=== PATIENT | female | born 1940 | race Caucasian/White ===

== ENCOUNTER → 2017-10-29 | Outpatient (CLI) | payer MEDICARE, BC ==
[~2017-10-29] MED LIST: ALBU90OI INH; ASCO500 PO; BECL25NI; CALCAVITDA PO; DIAZIDE PO; FAMO20 PO; LOSHYD PO; MULVITMINF PO; OXYACE5T PO; PANT20 PO; PANT40 PO; RXOXYACE PO; TERI750 SQ; TRIHYD253A PO
== END | disposition home or self-care (01) ==
LOC: LAB SHORT 07:41 → PLD 07:41
DX: C44.329 Squamous cell carcinoma of skin of other parts of face (principal)
CPT/HCPCS: 88305

== ENCOUNTER → 2020-08-06 | Outpatient (CLI) | payer MEDICARE, BC ==
[2020-08-08 16:03] LABS: CORONAVIRUS (COVID19) CSH-NRL Negative (Negative)
== END | disposition home or self-care (01) ==
LOC: LAB SHORT 11:50 → LAB EV 11:50
PROVIDERS: Family Medicine
DX: J06.9 Acute upper respiratory infection, unspecified (principal); Z20.828 Contact with and (suspected) exposure to other viral communicable diseases
CPT/HCPCS: U0003

== ENCOUNTER → 2022-11-06 | Outpatient (CLI) | payer MEDICARE, BC | LOC: LAB 10:36 → LAB SHORT 10:36 | DX: C44.102 Unspecified malignant neoplasm of skin of right eyelid, including canthus (principal) | CPT/HCPCS: 88305 ==

== ENCOUNTER 2024-02-02 11:55 | Day surgery (SDC) | payer MEDICARE, BC ==
[~2024-02-02] VITALS: Ht 157.5 cm; Wt 56.9 kg
[~2024-02-02 11:55] MED LIST changes: +C COMPLEX1000 M1 PO; +DYAZIDE 37.5-21 EACH PO; +FLUT.05NI; +IMPOYZ100 GM; +Lactated Ringer's 1,000 ML IV ONE; +Lidocaine HCl 2% 10 ML SDA ONE; +MECL25 PO; +MONT10T PO; +PANTOPRAZOLE SO40 M2 PO
[2024-02-02] MEDS ORDERED: NS 50 ML IV ONE (12:26)
[2024-02-02] MEDS ORDERED: CeFAZolin Sodium 2,000 MG VIAL ONE (12:26)
[2024-02-02] MEDS ORDERED: Lidocaine 1%-Epineph 1:100000 20 ML MDV ONE (12:37)
[2024-02-02] MEDS ORDERED: propofoL 0 ML IV ONE (12:38)
[2024-02-02] MEDS ORDERED: Ondansetron HCl 2 MG / ML 2ML Vial ONE (12:38)
[2024-02-02] MEDS ORDERED: Dexamethasone Sod Phos 10 MG/ML 1ML VIAL ONE ×2 (12:38→14:03)
[2024-02-02] MEDS ORDERED: Ketorolac Tromethamine 30mg Vial ONE (12:38)
[2024-02-02] MEDS ORDERED: Midazolam HCl 1MG / ML 2ML Vial ONE ×2 (12:39→14:03)
[2024-02-02] MEDS ORDERED: ALBU90OI (12:40)
[2024-02-02] MEDS ORDERED: Lactated Ringer's 1,000 ML IV ONE ×2 (12:59)
[2024-02-02] MEDS ORDERED: Lidocaine HCl 2% 10 ML SDA ONE (13:35)
[2024-02-02] MEDS ORDERED: EPINEPhrine HCl 1 MG/ML 1ML Amp ONE (14:03)
[2024-02-02] MEDS ORDERED: propofoL 20 ML IV ONE (14:27)
--- NOTE | 2024-02-02 14:27 | NUR ---
02/02/24 1427 Ana Laura Villatoro TIME OUT PERFORMED AT BEDSIDE AT [address] KAY AND SHITAL MAST PRESENT. PREOP AXILLARY NERVE BLOCK PERFORMED AT BEDSIDE. PATIENT ON 4L 02 VIA NC. SPO2 AND BP MONITORED THROUGHOUT PROCEDURE. PATIENT TOLERATED PROCEDURE WELL. NERVE BLOCK STARTED AT 1415 AND ENDED AT 1420.
--- NOTE | 2024-02-02 15:27 | NUR ---
02/02/24 1527 Fabio Atkins LEFT AXILLARY BLOCK COMPLETE IN PRE OP BY DR KAY.
[2024-02-02 15:31] VITALS: BP 108/60
== END 2024-02-02 16:27 | disposition home or self-care (01) ==
LOC: ORSCSDS 11:55
PROVIDERS: Orthopaedic Surgery
PROC: 0L860ZZ Division of Left Lower Arm and Wrist Tendon, Open Approach (ICD-10-PCS; principal; 2024-02-02 13:15)
PROC: 0PSJ04Z Reposition Left Radius with Internal Fixation Device, Open Approach (ICD-10-PCS; principal; 2024-02-02 13:15)
DX: S52.572A Other intraarticular fracture of lower end of left radius, initial encounter for closed fracture (principal); S52.615A Nondisplaced fracture of left ulna styloid process, initial encounter for closed fracture; W18.30XA Fall on same level, unspecified, initial encounter; I10 Essential (primary) hypertension; Z79.899 Other long term (current) drug therapy
CPT/HCPCS: C1713; J0171; J0690; J1100; J1885; J2001; J2250; J2405; J2704; J7120

== ENCOUNTER 2024-11-26 10:01 | Emergency (ER) | payer MEDICARE, BC ==
[~2024-11-26] VITALS: Ht 157.5 cm; Wt 54.0 kg
[~2024-11-26 10:01] MED LIST changes: +ALBU90OI; -Lactated Ringer's 1,000 ML IV ONE; -Lidocaine HCl 2% 10 ML SDA ONE
[2024-11-26 10:20] VITALS: BP 146/79
[2024-11-26] MEDS ORDERED: Ibuprofen 600 MG Tab PO ONE (10:30)
[2024-11-26] MEDS ORDERED: Acetaminophen 500 MG Tab PO ONE (10:30)
[2024-11-26] MEDS ORDERED: HYDROCODONE-AC1 EA19 PO (13:05)
[2024-11-26] MEDS ORDERED: LIDO700A20 TOP (13:11)
== END 2024-11-26 13:23 | disposition home or self-care (01) ==
LOC: ER 10:01
DX: S22.42XA Multiple fractures of ribs, left side, initial encounter for closed fracture (principal); K21.9 Gastro-esophageal reflux disease without esophagitis; X58.XXXA Exposure to other specified factors, initial encounter; Z79.51 Long term (current) use of inhaled steroids; Z79.899 Other long term (current) drug therapy; Z88.1 Allergy status to other antibiotic agents; Z88.8 Allergy status to other drugs, medicaments and biological substances
CPT/HCPCS: 71101; 99283-25; A9270